=== PATIENT | male | born 1965 | race Caucasian/White ===

== ENCOUNTER → 2024-10-18 08:36 | Outpatient (CLI) | payer OTHER, SELFPAY ==
--- NOTE | 2024-10-18 08:42 | DI.MRI.S_ITS ---
PROCEDURE: MR HEAD/BRAIN WO CON INDICATIONS: DAILY RASCON R SIDE ONGOING FOR YEARS AND CANLAST 1 MO TECHNIQUE: Noncontrast axial T1 spin echo, axial T2 fast spin echo, sagittal and axial FLAIR, coronal T2 fast spin echo, axial gradient echo, axial diffusion and ADC through the brain. COMPARISON: None. FINDINGS: Image quality: Diagnostic CSF Spaces: Basal cisterns are patent. No extra-axial fluid collections. Ventricles are normal in size and shape. Brain: No intracranial masses or hemorrhage. Day/white matter interface is normal. Brainstem appears normal. Diffusion-weighted images demonstrate no acute infarct. No chronic ischemic insults. Normal intravascular flow voids are present. Skull and face: Calvarium has normal marrow signal. Orbits appear normal. Sinuses: Sinuses and mastoids are clear. IMPRESSION: No imaging explanation is found for this patient's presenting symptoms. To the limits of this noncontrast study, no findings of intracranial masses or mass effect can be seen. Dictated by: Herminio Espinoza M.D. on 10/18/2024 at 10:37 Approved by: Herminio Espinoza M.D. on 10/18/2024 at 10:38
== END ==
LOC: MRI 08:41
PROVIDERS: PCP Family Medicine; Referring Provider Family Medicine; Visit Provider Family Medicine
DX: R51.9 Headache, unspecified (principal)
CPT/HCPCS: 70551